=== PATIENT | female | born 1985 | race African-American/Black ===

== ENCOUNTER 2017-03-15 11:52 | Emergency (ER) | payer OTHER ==
[~2017-03-15] VITALS: Ht 162.6 cm; Wt 74.8 kg
[2017-03-15 12:14] VITALS: BP 127/75
--- NOTE | 2017-03-15 13:21 | RAD ---
EXAM: Obstetric sonogram. HISTORY: Pain and spotting. TECHNIQUE: Transabdominal and transvaginal sonographic imaging of the pelvis was performed. COMPARISON: None. FINDINGS: The uterus measures 9.5 x 5.6 x 4.1 cm. The right ovary measures 4.4 x 2.7 x 2.5 cm. The left ovary measures 4.4 x 2.1 x 3.5 cm. There is normal blood flow within both ovaries. There is no pelvic free fluid. The endometrial stripe measures 8 mm in thickness. No intrauterine gestational sac is seen. IMPRESSION: 1. No evidence of an intrauterine gestation. This may be due to relatively early gestation or chemical . There are no secondary findings to suggest ectopic gestation on this exam. Correlate with serial hCG levels. 2. Otherwise, unremarkable pelvic sonogram.
--- NOTE | 2017-03-15 13:37 | PHYS DOC ---
Past Medical History Past Medical History: No Pertinent History Past Surgical History: Alcohol Use: Occasionally Drug Use: None Adult General Chief Complaint Chief Complaint: ABDOMINAL PAIN IN HPI HPI Patient is a 31 year old female who states she is 5 weeks and presents with abdominal/pelvic cramping and vaginal spotting since this morning. LMP 10/6. She had a positive home test on 03/12 and had a positive urine test in the doctor's office on 03/14. PCP is at [facility]. She was referred to Dr. Chairez and has an appointment coming up this week. Patient is 5 para 2. Her first was delivered at 33 weeks and she had HELLP syndrome. Her second was normal. She had a miscarriage at 5 weeks in February 2016, and she had a miscarriage at 4 weeks in May 2016. She has never been evaluated for the reasons that she had a miscarriage. Patient states she is be negative. She has been given RhoGAM in the past. Her only medication is vitamins. She does not have chronic medical problems. She did just have her annual checkup in January and everything was okay. Review of Systems Review of Systems Constitutional: Denies fever or chills [] GI: Denies abdominal pain, nausea, vomiting, bloody stools or diarrhea [] : Denies dysuria , [employer] as in history of present illness All other systems were reviewed and found to be within normal limits, except as documented in this note. Allergies Allergies Allergies Coded Allergies Type Severity Reaction Last Updated Verified No Known Drug Allergies 03/15/17 No Physical Exam Physical Exam Constitutional: Well developed, well nourished, no acute distress, non-toxic appearance. Alert, vital signs stable, mentating normally, warm and dry. HENT: Normocephalic, atraumatic, bilateral external ears normal, nose normal. [ ] Eyes: conjunctiva normal, no discharge. [] Neck: Normal range of motion, no stridor. [] Cardiovascular:Heart rate regular rhythm, no murmur [] Lungs & Thorax: Bilateral breath sounds clear to auscultation [] Abdomen: Bowel sounds normal, soft, nondistended, no tenderness, no masses, no pulsatile masses. [] Skin: Warm, dry, no erythema, no rash. [] Extremities: No tenderness, no cyanosis, no clubbing, ROM intact, no edema. [] Neurologic: Alert and oriented X 3, normal motor function, no focal deficits noted. [] Current Patient Data Vital Signs Vital Signs Date Time Temp Pulse Resp B/P (MAP) Pulse Ox O2 Delivery O2 Flow Rate FiO2 03/15/17 12:14 98.9 88 18 127/75 (92) 98 Room Air 98.9 Lab Values Laboratory Tests Test 03/15/17 12:00 03/15/17 12:20 POC Urine HCG, Qualitative Hcg negative (Negative) Maternal Serum HCG Beta Subunit 7 mIU/mL (0-5) H EKG EKG [] Radiology/Procedures Radiology/Procedures Ultrasound including transvaginal was interpreted by the radiologist. No intrauterine seen. No evidence of ectopic . Otherwise unremarkable.[] Course & Med Decision Making Course & Med Decision Making Pertinent Labs and Imaging studies reviewed. (See chart for details) 31-year-old female who had a positive urine tests twice in the last 3 days presents today with cramping and spotting. Her urine test in the ED was negative. Her serum Quant was 7. See ultrasound results. It sounds like the patient had a very early that probably did not even implant and she is having a very early spontaneous miscarriage. There is no sign of ectopic or any other serious etiology at this time. The patient is Rh- but because she was so early, there was no blood and therefore she does not require rogue and. She does have an appointment coming up on 03/19 with her OB doctor and I encouraged her to keep that appointment. We discussed the diagnosis and plan. Questions were answered. Patient is stable for discharge. See instructions for plan. [] Dragon Disclaimer Dragon Disclaimer This electronic medical record was generated, in whole or in part, using a voice recognition dictation system. Departure Departure Impression: Primary Impression: , inevitable Additional Impression: Complete spontaneous Disposition: 01 HOME, SELF-CARE Condition: STABLE Referrals: UNKNOWN PCP NAME (PCP) Patient Instructions: Miscarriage, [id number] Additional Instructions: As we discussed, today your serum quantitative beta hCG was 7. Typically, to have a positive urine test. It would be about 25 or higher. As we discussed, I believe that you had a very early that possibly did not even implant, and now are experiencing a very early miscarriage. You may treat the bleeding and cramping like a period, you may take ibuprofen, use heating pad , etc. as needed. See Your doctor as planned on Friday to discuss further testing as we discussed. Problem Qualifiers KASI KOWALSKI MD Mar 15, 2017 13:37
== END 2017-03-15 13:45 | disposition home or self-care (01) ==
LOC: ER 11:52
DX: O03.9 Complete or unspecified spontaneous abortion without complication (principal)
CPT/HCPCS: 36415; 76801; 76817; 81025; 84702; 86900; 86901; 99285-25